=== PATIENT | male | born 1940 | race Caucasian/White ===

== ENCOUNTER 2021-10-15 09:26 | Emergency (ER) | payer MEDICARE, SELFPAY ==
[2021-10-15 10:09] VITALS: BP 151/73; PULSE 61; RESP 16; TEMP 36.7; O2SAT 98
--- NOTE | 2021-10-15 10:48 | ED.EYEPROB ---
HPI - Eye Problem General Chief complaint: Eye Problems Stated complaint: pos pink eye Time Seen by Provider: 10/15/21 10:41 Source: patient and RN notes reviewed Mode of arrival: ambulatory Limitations: no limitations History of Present Illness HPI Narrative: Patient presents today complaining of redness and swelling with pain to the right upper eyelid x5 days that has been worsening since onset. Denies vision changes, foreign body sensation, drainage. Currently rates his pain 3/10 and has been using Visine without relief. Related Data Home Medications Medication Instructions Recorded Confirmed clopidogrel 75 mg tablet 75 mg PO DAILY 04/18/20 10/15/21 lisinopril 20 mg tablet 20 mg PO DAILY 04/18/20 10/15/21 lisinopril-hydrochlorothiazide 1 tablet PO DAILY 10/15/21 10/15/21 metoprolol succinate 50 mg PO DAILY 10/15/21 10/15/21 simvastatin 40 mg PO DAILY 10/15/21 10/15/21 Allergies Allergy/AdvReac Type Severity Reaction Status Date / Time No Known Allergies Allergy Verified 10/15/21 10:34 Review of Systems Review of Systems: CONSTITUTIONAL: Denies body aches, fever, chills, or sweats. EYES: Denies visual changes, redness, or discharge. Right upper eyelid swelling, redness, and pain ENT: Denies rhinorrhea, congestion, sore throat, or otalgia. CARDIOVASCULAR: Denies chest pain, palpitations, or edema. RESPIRATORY: Denies cough or dyspnea. GASTROINTESTINAL: Denies abdominal pain, nausea, vomiting, or diarrhea. GENITOURINARY: Denies dysuria or hematuria. SKIN: Denies rash, itching, or wounds. MUSCULOSKELETAL: Denies back pain, joint pain, or myalgia. NEUROLOGIC: Denies headache, numbness, tingling, or weakness. PSYCH: Denies depression or anxiety. [facility] Past Medical History Medical History (Updated 10/15/21 @ 10:53 by Marge Briones, [place], [place]) CVA (cerebral vascular accident) High cholesterol Hypertension Social History Social History Smoking status: Never smoker Comments At time of signature, I have reviewed and agree with nursing past medical, surgical, social and family history unless otherwise noted. Please see nursing chart for further information. There is no relevant family history pertinent to the presenting complaint Exam Narrative: GENERAL: Well-appearing, well-nourished, and in no acute distress. HEAD: Normocephalic, atraumatic. EYES: EOMI. PERRL. Conjunctivae normal bilaterally. Right eye: Upper eyelid is mild to moderately erythematous and edematous. Inspection of the inner upper eyelid shows no obvious pustule. Left eye normal ENT: Mucous membranes pink and moist. NECK: Normal AROM. CHEST: No respiratory distress. EXTREMITIES: Normal range of motion. No edema. SKIN: Warm, dry, no rash. Capillary refill normal. Normal skin turgor. NEURO: No focal deficits. Alert and oriented x3. Gait steady. PSYCH: Normal affect. No signs of depression or anxiety. Course Course Level of Care: Express Care Visit Vital Signs Vital signs: Vital Signs Temperature 98.1 F 10/15/21 10:09 Pulse Rate 61 10/15/21 10:09 Respiratory Rate 16 10/15/21 10:09 Blood Pressure 151/73 H 10/15/21 10:09 Pulse Oximetry 98 10/15/21 10:09 Temperature 98.1 F 10/15/21 10:09 Pulse Rate 61 10/15/21 10:09 Respiratory Rate 16 10/15/21 10:09 Blood Pressure 151/73 H 10/15/21 10:09 Pulse Oximetry 98 10/15/21 10:09 Reviewed. Pt has been instructed to follow up with his PCP regarding his elevated blood pressure today. MDM - Eye Problem Differential Diagnosis Differential diagnosis: Likely conjunctivitis, periorbital cellulitis and other (Stye) Critical Care Time Critical Care Time Critical Care Time: No Discharge Plan Discharge Clinical Impression: Hordeolum Qualifiers: Hordeolum type: unspecified type Laterality: right Eyelid: upper Qualified Code(s): H00.011 - Hordeolum externum right upper eyelid Patient D
== END 2021-10-15 10:55 | disposition home or self-care (01) ==
PROVIDERS: Emergency Provider Nurse Practitioner; PCP Family Medicine
DX: H00.011 Hordeolum externum right upper eyelid (principal); E78.00 Pure hypercholesterolemia, unspecified; I10 Essential (primary) hypertension; Z86.73 Personal history of transient ischemic attack (TIA), and cerebral infarction without residual deficits
CPT/HCPCS: 99213; G0463

== ENCOUNTER 2022-11-18 15:12 | Emergency (ER) | payer MEDICARE, SELFPAY ==
--- NOTE | 2022-11-18 15:18 | ED.EAR ---
HPI - Ear Problem General Chief complaint: Ear Stated complaint: FB in Left ear (pt of hearing aid) Source: patient and RN notes reviewed History of Present Illness HPI Narrative: 82-year-old male presents to urgent care with complaints of a foreign body in his left ear. Patient states approximately 45 minutes prior to arrival he was taking out his hearing aid and felt like the and admit stuck in his ear. Patient denies any ear pain or any other complaints. Some parts of this dictation were generated by voice recognition software and may contain typographical and/or grammatical inaccuracies. Related Data Home Medications Medication Instructions Recorded Confirmed clopidogrel 75 mg tablet (Plavix) 75 mg PO DAILY 04/18/20 10/15/21 lisinopril 20 mg tablet 20 mg PO DAILY 04/18/20 10/15/21 metoprolol succinate 50 mg 50 mg PO DAILY 10/15/21 10/15/21 tablet,extended release 24 hr simvastatin 40 mg tablet 40 mg PO DAILY 10/15/21 10/15/21 Allergies Allergy/AdvReac Type Severity Reaction Status Date / Time No Known Allergies Allergy Verified 11/18/22 15:25 Review of Systems Review of Systems: CONSTITUTIONAL: Denies fever, chills, or sweats. EYES: Denies visual changes, redness, or discharge. ENT: Complaints of foreign body sensation in left ear CARDIOVASCULAR: Denies chest pain, palpitations, or edema. RESPIRATORY: Denies cough or dyspnea. GASTROINTESTINAL: Denies abdominal pain, nausea, vomiting, or diarrhea. GENITOURINARY: Denies dysuria or hematuria. SKIN: Denies rash or itching. MUSCULOSKELETAL: Denies back pain, joint pain, or myalgia. NEUROLOGIC: Denies headache, numbness, or weakness. [facility] Past Medical History Medical History (Updated 11/18/22 @ 15:36 by Alesha Mckeon, YRN) CVA (cerebral vascular accident) High cholesterol Hypertension Social History Social History (Reviewed 10/15/21 @ 10:50 by Marge Briones, [facility], ) Smoking status: Never smoker Comments At the time of my signature, I reviewed and agree with the nursing past medical, surgical, social, and family history. There is no relevant family history pertinent to the patient complaint. Exam Narrative: GENERAL: This is a well-nourished, well-developed patient, in no apparent distress. HEAD: normocephalic, atraumatic. EYES: PERRL. Sclera clear/white. Vision is grossly intact. EARS: Meza a rubber piece noted in left ear canal NOSE: External nose normal with no obvious nasal discharge, nares without redness, no rhinorrhea. THROAT: Mucous membranes moist, posterior pharynx clear. NECK: Neck supple, non-tender without lymphadenopathy, masses or thyromegaly. CARDIOVASCULAR: Regular rate RESPIRATORY: No respiratory distress GASTROINTESTINAL: Abdomen soft, non-tender, nondistended. Bowel sounds are active. No hepato-splenomegaly, or palpable masses. No guarding. SKIN: warm, intact with no suspicious lesions or rash, good texture and turgor. NEURO: awake, alert, and oriented to person, place and time. There were no obvious focal neurologic abnormalities. Course Course Level of Care: Express Care Visit Vital Signs Vital signs: Vital Signs Temperature 97.5 F L 11/18/22 15:20 Pulse Rate 66 11/18/22 15:20 Respiratory Rate 18 11/18/22 15:20 Blood Pressure 143/71 H 11/18/22 15:20 Pulse Oximetry 96 11/18/22 15:20 Oxygen Delivery Room Air 11/18/22 15:20 Temperature 97.5 F L 11/18/22 15:20 Pulse Rate 66 11/18/22 15:20 Respiratory Rate 18 11/18/22 15:20 Blood Pressure 143/71 H 11/18/22 15:20 Pulse Oximetry 96 11/18/22 15:20 Oxygen Delivery Room Air 11/18/22 15:20 Reviewed Procedures FB Removal Ear Foreign Body #1: Foreign Body Removal Date: 11/18/22 Foreign Body Removal Time: 15:45 Location: ear canal (L) Foreign Body Suspected: other (meza, rubber, end of hearing aid) TM intact pre-procedure: unable to visualize Foreign Body Removed: yes Foreign
[2022-11-18 15:20] VITALS: BP 143/71; PULSE 66; RESP 18; TEMP 36.4; O2SAT 96
== END 2022-11-18 15:43 | disposition home or self-care (01) ==
PROVIDERS: Emergency Provider Nurse Practitioner Family; PCP Family Medicine
DX: T16.2XXA Foreign body in left ear, initial encounter (principal); I10 Essential (primary) hypertension; Z86.73 Personal history of transient ischemic attack (TIA), and cerebral infarction without residual deficits
CPT/HCPCS: 69200; 99212; G0463